=== PATIENT | female | born 1970 | race Caucasian/White ===

== ENCOUNTER → 2016-10-26 | Outpatient (CLI) | payer BC, OTHER ==
--- NOTE | 2016-10-26 14:52 | MAMMOGRAPHY REPORT ---
BILATERAL DIGITAL DIAGNOSTIC MAMMOGRAM TOMOSYNTHESIS WITH CAD AND TARGETED LEFT ULTRASOUND: 7 CLINICAL HISTORY: 6 Month Follow-up Left. TECHNIQUE: Breast tomosynthesis in addition to standard 2D mammography was performed. Current study was also evaluated with a Computer Aided Detection (CAD) system. Bilateral CC and MLO 2-D and karon synthesis images and spot magnification left CC and ML views were obtained. COMPARISON: Comparison is made to exams dated: 03/31/2016 mammogram, 09/30/2015 mammogram, 09/16/2015 mammogram, 09/30/2015 ultrasound, 08/07/2014 mammogram, and 08/04/2013 mammogram - [facility]. BREAST COMPOSITION: The tissue of both breasts is extremely dense, which lowers the sensitivity of mammography. FINDINGS: Spot magnification views of the left breast again demonstrate regionally distributed faint calcifications in the left inferior breast. Some of the calcifications layer on the lateral view c onsistent with benign milk of calcium. The calcifications do not appear significantly changed aditya red to the March 2016 and August 2015 exams. The options of short interval follow-up versus stereo tactic biopsy were again discussed with the patient. At this time we will opt for stereotactic biop sy. A newly visualized oval circumscribed 2.8 cm mass is seen within the left breast at approximately 12 :00, for which ultrasound is recommended. The remainder of both breasts are stable compared to prior exams, without suspicious masses, calcifications, or areas of architectural distortion noted. Targeted ultrasound was performed of the area of the mammographic mass. In the left breast at 12:00 , 3 cm from the nipple, again noted is an oval anechoic circumscribed mass which measures 3.2 x 2.1 x 0.9 cm. This corresponds with the mammographic mass and is consistent with a benign simple cyst. Adjacent to this is another oval circumscribed anechoic mass with a few thin internal septations, m easuring 1.5 x 0.9 x 0.8 cm, also consistent with a benign cyst. IMPRESSION: ACR BI-RADS CATEGORY 4: SUSPICIOUS, TARGETED ULTRASOUND ACR BI-RADS CATEGORY 4: SUSPICI OUS 1. Regional calcifications in the left inferior breast are stable dating back to the August 2015 exam, and may represent fibrocystic changes. The options of short interval follow-up versus stereot actic biopsy were again discussed with the patient, and at this time we will opt for stereotactic bi opsy to exclude the possibility of DCIS. Therefore, recommend stereotactic biopsy for further evalu ation. 2. Two adjacent benign cysts in the left breast at 12:00, the largest measuring 3.2 cm. 3. No mammographic evidence of malignancy in the right breast. A phone call was made to the physician's office to confirm faxed results were received. The patient and her have been verbally notified of the results. She tentatively scheduled the biopsy b efore leaving the department. Approximately 10% of breast cancers are not detected with mammography. A negative mammographic repor t should not delay biopsy if a clinically suggestive mass is present. Linda Sultana M.D. ah/:10/26/2016 12:32:19 Wine Steward: Zarina GUILLEN(Mojgan)(M), [facility] letter sent: Abnormal 4/5 BI-RADS Code: ACR BI-RADS Category 4: Suspicious Ultrasound BI-RADS: ACR BI-RADS Category 4: Suspic ious
--- NOTE | 2016-11-03 12:48 | CODING QUERY NO DIAGNOSIS ---
TREATMENT RENDERED WITHOUT A DIAGNOSIS To promote full compliance with coding requirements relating to patient care, physician participation is requested in all cases of development expert uncertainty. Please assist us with providing a diagnosis/symptom for the test(s) below: A diagnosis/symptom was not documented on your Order. A valid diagnosis/symptom is required to bill all insurances. Please remember that we are unable to code a diagnosis of rule out, probable, possible, questionable, or suspected. Tests that require a diagnosis: DOS: 10/26/16 * B/L DIAGNOSTIC MAMMOGRAM DIAGNOSIS: * TARGETED LEFT BREAST ULTRASOUND DIAGNOSIS: Provider Signature: Date: Thank you [facility] Information Management Once completed, please kindly fax back to [phone] For questions please call [phone]
== END | disposition home or self-care (01) ==
LOC: C.MAMM 10:56
PROVIDERS: ATTEND Family Medicine
DX: R92.1 Mammographic calcification found on diagnostic imaging of breast (principal); N60.02 Solitary cyst of left breast

== ENCOUNTER → 2016-11-15 | Outpatient (CLI) | payer BC, OTHER ==
--- NOTE | 2016-11-15 13:38 | Discharge Instructions ---
Discharge Instructions Procedure Procedure Date: Nov 15, 2016. Reason for visit: Left Calcs. Discharge Discharge Date: Nov 15, 2016. Discharge Diagnosis: status post breast biopsy Instructions Activity Recommendations: Additional Limitations (see below) Return to School/Work: no limitations Recommended Home Diet: No Limitations Provider Instructions: ACTIVITY RECOMMENDATIONS: * No lifting, pushing, pulling or exercising the affected side for three days. RETURN TO SCHOOL/WORK: * You may return to work/school after the procedure, but do not perform any strenuous activities for 24 to 48 hours. MEDICATIONS: * Tylenol (two 325 mg) every four to six hours if needed for mild pain (if not allergic to Tylenol). DIET: * Resume previous diet. SPECIAL CARE INSTRUCTIONS: * Keep biopsy site dry for 24 hours. May shower after 24 hours, but do not soak (bathe) incision. * May remove Tegaderm (plastic patch) tomorrow AFTER showering. * Leave the steri-strips on for one week. Allow the steri-strips to fall off by themselves. If not off after one week, you may remove them. You may place a Bandaid crosswise over the strips, if desired. * Apply ice 10 minutes on and 10 minutes off as needed. * Wear a bra at bedtime to sleep more comfortably for 2-3 days. * Your referring physician should have the results after approximately 5 to 7 business days. * Call for unusual bleeding, fever, drainage, etc or if you have any questions call during normal business hours or after hours call Dr Sultana, . FOLLOW UP VISIT: Follow-up with Referring Physician as scheduled. [facility] Wayy Recommendations: Call your doctor if: * Temperature above 101 degrees * Pain not relieved by pain medicine ordered * There is increased drainage or redness from any incision * You have any unanswered questions or concerns. Your Doctors Instructions noted above were prepared by provider Linda Sultana. Patient Signature Section: Patient Instructions Signature Page Kaylee Walls Patient (or Guardian) Signature/Date: I have read and understand the instructions given to me by my caregivers. Caregiver/RN/Doctor Signature/Date: The above-named patient and/or guardian has received patient instructions on this date. + Original Patient Signature Page (only) stays with chart. Please make copy for patient.
--- NOTE | 2016-11-15 15:07 | MAMMOGRAPHY REPORT ---
STEREOTACTIC GUIDED BIOPSY LEFT BREAST: 11/15/2016 CLINICAL HISTORY: Left inferior breast calcifications. PATIENT CONSENT: The procedure, risks, benefits, and alternatives of stereotactic biopsy with clip p lacement were discussed with the patient, and verbal and written consent was obtained. A timeout wa s performed immediately prior to the procedure. PROCEDURE DESCRIPTION: With stereotactic guidance, aseptic technique, and lidocaine as a local anest hetic (1% lidocaine to anesthetize the skin and 1% lidocaine with epinephrine to anesthetize the kenn per tissues), the area of concern was sampled multiple times with a 9-gauge vacuum-assisted biopsy n eedle (Prixing Eviva). The path of approach was caudocranial. The specimen radiograph demonstrates c alcifications to be present in the samples. A metallic marker clip was placed at the biopsy site. This was confirmed on postprocedure mammograms. Direct pressure was applied at the biopsy site and hemostasis was readily achieved. The patient tolerated the procedure without complication. She was given wound care instructions. COMPARISON: Comparison is made to exams dated: 10/26/2016 mammogram, 03/31/2016 mammogram, 09/30/2015 mammogram, 08/07/2014 mammogram, 08/04/2013 mammogram, and 08/01/2012 mammogram - [facility]. IMPRESSION: STEREOTACTIC GUIDED BIOPSY Stereotactic biopsy of indeterminate calcifications in the left inferior breast, with clip placement . The patient will receive pathology results from her referring provider. Linda Sultana M.D. /:11/15/2016 13:39:40 Director Voice: Keysha GUILLEN(Mojgan)(M), [facility]
--- NOTE | 2016-11-15 15:07 | MAMMOGRAPHY REPORT ---
UNILATERAL LEFT DIGITAL DIAGNOSTIC MAMMOGRAM: 11/15/2016 CLINICAL HISTORY: Status post left breast stereotactic biopsy. TECHNIQUE: Post procedure left CC and ML views were obtained. COMPARISON: Comparison is made to exams dated: 10/26/2016 mammogram, 03/31/2016 mammogram, 09/30/2015 mammogram, 08/07/2014 mammogram, 08/04/2013 mammogram, and 08/01/2012 mammogram - [facility]. BREAST COMPOSITION: The tissue of the left breast is extremely dense, which lowers the sensitivity of mammography. FINDINGS: A new biopsy marker clip is seen at the site of the biopsied calcifications in the left 6 :00 breast. No significant postbiopsy hematoma is seen. IMPRESSION: POST PROCEDURE IMAGING FOR MARKER PLACEMENT New biopsy marker clip status post stereotactic biopsy of left breast calcifications. Pathology res ults are pending. Pending benign pathology results, the patient can return to routine annual mammog hanh. Approximately 10% of breast cancers are not detected with mammography. A negative mammographic repor t should not delay biopsy if a clinically suggestive mass is present. Linda Sultana M.D. ah/:11/15/2016 14:01:59 Event Technician: Keysha Verdin RT(R)(M), [facility] BI-RADS Code: Post Procedure Imaging For Marker Placement
== END | disposition home or self-care (01) ==
LOC: C.MAMM 12:24
PROVIDERS: ATTEND Family Medicine
DX: R92.0 Mammographic microcalcification found on diagnostic imaging of breast (principal); R92.1 Mammographic calcification found on diagnostic imaging of breast

== ENCOUNTER → 2017-11-07 | Outpatient (CLI) | payer OTHER ==
--- NOTE | 2017-11-07 14:03 | MAMMOGRAPHY REPORT ---
BILATERAL DIGITAL SCREENING MAMMOGRAM TOMOSYNTHESIS WITH CAD: 11/07/2017 CLINICAL HISTORY: Routine screening. Patient has no complaints. TECHNIQUE: Breast tomosynthesis in addition to standard 2D mammography was performed. Current study was also evaluated with a Computer Aided Detection (CAD) system. COMPARISON: Comparison is made to exams dated: 11/15/2016 mammogram, 11/15/2016 stereotactic biopsy, ultrasound, 10/26/2016 mammogram, 03/31/2016 mammogram, and 09/30/2015 mammogram - [facility]. BREAST COMPOSITION: The tissue of both breasts is extremely dense, which lowers the sensitivity of m ammography. FINDINGS: A linear scar marker overlies the left upper outer quadrant. A dominant oval circumscribed 3.5 x 2.5 cm mass in the 12:00 left breast is again seen, previously documented to represent a simpl e cyst on ultrasound. There is a stable biopsy marker clip in the 6:00 left breast at the site of pr ior benign stereotactic biopsy. Minimal distortion surrounds the biopsy marker clip, likely represen ting post biopsy change. There are fluctuating circumscribed masses throughout the remainder of the left breast, most likely representing fluctuating cysts. No new suspicious mass, architectural disto rtion or cluster of suspicious microcalcifications is seen. IMPRESSION: ACR BI-RADS CATEGORY 1: NEGATIVE There is no mammographic evidence of malignancy. A 1 year screening mammogram is recommended. The pa tient will receive written notification of the results. Approximately 10% of breast cancers are not detected with mammography. A negative mammographic report should not delay biopsy if a clinically suggestive mass is present. Dodie Naidu M.D. ay/:11/07/2017 11:31:23 Product Delivery Specialist: Zarina Zelaya, [facility] letter sent: Normal 1/2 BI-RADS Code: ACR BI-RADS Category 1: Negative
== END | disposition home or self-care (01) ==
LOC: C.MAMM 10:39
PROVIDERS: ATTEND Physician Assistant Medical
DX: Z12.31 Encounter for screening mammogram for malignant neoplasm of breast (principal)